=== PATIENT | female | born 1955 | race Caucasian/White ===

== ENCOUNTER → 2017-03-01 | Outpatient (CLI) | payer OTHER, SELFPAY ==
[~2017-03-01] MED LIST: ASPIRIN LO-DOSE81 MG PO; IBUPROFEN200 MG PO; JANUVIA50 MG PO; LIPITOR80 MG PO; LOPRESSOR25 MG PO; LOSARTAN POTASS50 MG PO; NORVASC5 MG PO; PRINIVIL OR ZES10 MG PO; SALONPAS PATCH1 EACH TOP; ULTRAM50 MG PO
== END | disposition disaster alternative care site (69) ==
LOC: EDBD 02-23 10:00 → GRAD 02-23 10:00
DX: R10.11 Right upper quadrant pain (principal); K76.0 Fatty (change of) liver, not elsewhere classified; K82.8 Other specified diseases of gallbladder

== ENCOUNTER → 2017-03-26 | Day surgery (SDC) | payer OTHER ==
[~2017-03-26] VITALS: Ht 160 cm; Wt 91.5 kg
--- NOTE | ~2017-03-26 | OR ---
PATIENT'S NAME: DIANA DELACRUZ [facility] AGE: 61 Y [address] ROOM: [place] [id number] LOCATION: [facility] – [place] ADMIT DATE: 03/26/2017 OR/Procedure Report DISCHARGE DATE: FAMILY PHYSICIAN: Sandy Eastman ATTENDING PHYSICIAN: Shanon Malave SURGEON: Shanon Malave MD SENIOR NET ARCHITECT: Yolanda Brody PA-C. DATE OF PROCEDURE: 03/26/2017 PREOPERATIVE DIAGNOSIS: Cholelithiasis. POSTOPERATIVE DIAGNOSIS: Cholelithiasis. PROCEDURE PERFORMED: Robotic-assisted laparoscopic cholecystectomy. ANESTHESIA: General endotracheal. ESTIMATED BLOOD LOSS: Less than 10 mL. SPECIMEN: Gallbladder. REASON FOR PROCEDURE: The patient is a 61-year-old female, who recently was having some lower chest pain. This eventually moved into more of her right upper quadrant abdomen. An ultrasound showed cholelithiasis, but no evidence of duct dilatation. Her liver function tests were normal. We discussed the risks and benefits of surgery versus cholecystectomy, and she elected to proceed with removal of the gallbladder. FINDINGS: The patient had numerous very small stones within the gallbladder. The cystic duct was normal in size. PROCEDURE IN DETAIL: The patient was taken to the Operating Suite and was placed in the supine position. After general endotracheal anesthesia was obtained, the abdomen was prepped with ChloraPrep and sterilely draped. Marcaine was infiltrated into the incision sites. A 2-cm transverse infraumbilical incision was made. The fascia was grasped and elevated, and a Veress needle was used to obtain a pneumoperitoneum. An 8- mm bladeless robotic trocar was then passed across the abdominal wall. Next, three further 8-mm robotic trocars were all placed under direct visualization. The robot was then docked to the trocars. The camera was advanced through the umbilical trocar and centered on the gallbladder. The other instruments were then advanced under direct visualization. The fundus of the gallbladder was grasped and elevated. A second grasper was placed on the infundibulum. We carefully dissected through the neck area of the gallbladder. The cystic duct PATIENT'S NAME: JOSEDIANA [facility] AGE: 61 Y [address] ROOM: [place] [address] LOCATION: [facility] ADMIT DATE: 03/26/2017 OR/Procedure Report DISCHARGE DATE: FAMILY PHYSICIAN: Sandy Eastman ATTENDING PHYSICIAN: Shanon Malave and cystic artery were individually skeletonized up the gallbladder wall. These were clipped proximally and distally with locking clips. They were then divided with scissors. The gallbladder was mobilized free of the liver bed using cautery. Once fully mobilized, the gallbladder was left in the right upper quadrant. The abdomen was scanned and no other abnormalities were seen. The instruments were withdrawn. The robot was undocked. We then withdrew the gallbladder through the umbilicus. The right upper quadrant was inspected, there was no bleeding or bile leak. The surgical clips were in place. The trocars were all withdrawn and pneumoperitoneum was evacuated. WOUND CLOSURE: The fascia at the umbilicus was closed with a Vicryl suture. The skin incisions were closed with subcuticular Monocryl. Benzoin, Steri- Strips, and gauze dressings were applied. POST-PROCEDURE PLAN: The patient will be sent to Recovery and discharged home. We will give her prescription for Ultram for pain control. She is to avoid any strenuous activity. We will see her in the office in a couple of weeks for a re-check. SHANON MALAVE MD JTM/modl /[id number] CC: Hunter Child MD d: 03/26/172022 t: 03/29/17 1547, OPERATIVE SUMMARY
--- NOTE | 2017-03-26 10:46 | NUR ---
2 IV ATTEMPTS MADE PER CESARRN
== END | disposition disaster alternative care site (69) ==
LOC: GPOC 03-21 15:00 → GSDC 09:47
PROC: 0FT44ZZ Resection of Gallbladder, Percutaneous Endoscopic Approach (ICD-10-PCS; principal; 2017-03-26)
PROC: 8E0W8CZ Robotic Assisted Procedure of Trunk Region, Via Natural or Artificial Opening Endoscopic (ICD-10-PCS; 2017-03-26)
DX: K80.10 Calculus of gallbladder with chronic cholecystitis without obstruction (principal); I25.10 Atherosclerotic heart disease of native coronary artery without angina pectoris; I10 Essential (primary) hypertension; E11.9 Type 2 diabetes mellitus without complications; K21.9 Gastro-esophageal reflux disease without esophagitis; E66.9 Obesity, unspecified; Z68.38 Body mass index [BMI] 38.0-38.9, adult
CPT/HCPCS: J1100; J1956; J2250; J2405; J3010; J7030

== ENCOUNTER → 2017-07-09 | Outpatient (CLI) | payer OTHER ==
[2017-07-09 08:53] LABS: ALBUMIN 3.6 gm/dL (3.5-5.0); ANION GAP 11.5 (10.0-19.0); CALCIUM 9.1 mg/dL (8.5-10.5); CREATININE 1.1 mg/dL (0.5-1.1); POTASSIUM 4.5 mMol/L (3.7-5.1); TOTAL BILIRUBIN 0.5 mg/dL (0.0-1.5); TOTAL PROTEIN 7.6 g/dL (6.0-8.4)
== END ==
LOC: LNHI 08:30
PROVIDERS: Internal Medicine Interventional Cardiology
DX: E78.5 Hyperlipidemia, unspecified (principal); I10 Essential (primary) hypertension; E11.9 Type 2 diabetes mellitus without complications